=== PATIENT | male | born 1985 | race Caucasian/White ===

== ENCOUNTER 2019-02-14 16:39 | Emergency (ER) | payer SELFPAY ==
[~2019-02-14] VITALS: Ht 177.8 cm; Wt 81.8 kg
[2019-02-14 17:14] VITALS: Ht 177.8 cm; Wt 81.8 kg
[2019-02-14] MEDS ORDERED: FLAGYL500 MG PO (18:19)
[2019-02-14 18:39] LABS: APPEARANCE CLOUDY (CLEAR); COLOR YELLOW (YELLOW)
[2019-02-14 18:40] LABS: BILIRUBIN NEGATIVE (NEGATIVE); GLUCOSE NEGATIVE (NEGATIVE); KETONE NEGATIVE (NEGATIVE); NITRITE NEGATIVE (NEGATIVE); PROTEIN 1+ mg/dL (NEGATIVE); UROBILINOGEN NORMAL (NORMAL)
[2019-02-14 18:43] LABS: BACTERIA FEW /hpf (NONE SEEN); RED CELLS - URINE 0-5 /hpf (0-5); SPERMATOZOA RARE /hpf (NONE SEEN); WHITE CELLS - URINE >50 /hpf (0-5)
[2019-02-14 18:59] VITALS: BP 127/72
[2019-02-19 17:08] LABS: CHLAMYDIA TRACHOMATIS, NAA Negative (Negative)
== END 2019-02-14 19:10 | disposition home or self-care (01) ==
LOC: D.ER 16:39
PROVIDERS: Emergency Medicine
DX: Z20.828 Contact with and (suspected) exposure to other viral communicable diseases (principal)